=== PATIENT | female | born 2000 | race Caucasian/White ===

== ENCOUNTER 2025-04-29 10:17 | Emergency (ER) | payer MEDICAID ==
[2025-04-29 11:07] LABS: #Basophils 0.04 10x3/uL (0.0-0.2); #Eosinophils 0.48 10x3/uL (0.0-0.5); #Monocytes 0.88 10x3/uL (0.0-1.1); #Neutrophils 5.04 10x3/uL (1.5-8.4); %Basophils 0.5 % (0.0-2.0); %Eosinophils 5.8 % (0.0-6.0); %Lymphocytes 21.3 % (18.0-47.0); %Monocytes 10.7 % (0.0-10.0); %Neutrophils 61.3 % (40.0-75.0); Hematocrit 30.3 % (34.9-44.5); Hemoglobin 10.0 g/dL (12.0-15.5); Mean Corpuscular Hemoglobin 28.2 pg (27.0-33.0); Mean Corpuscular Volume 85.4 fL (81.6-98.3); Platelet Count 243 10x3/uL (150-450); Red Blood Cell (RBC) Count 3.55 10x6/uL (3.90-5.03); White Blood Cell (WBC) Count 8.22 10x3/uL (3.5-10.5)
[2025-04-29 11:23] LABS: ALT (SGPT) 9 U/L (Less than 34); AST (SGOT) 24 U/L (11-34); Albumin 3.0 g/dL (3.1-4.5); Alkaline Phosphatase 149 U/L (40-110); Anion Gap 12 mmol/L (10-20); BUN (Urea Nitrogen) 7 mg/dL (7.0-18.7); Bilirubin, Total 0.2 mg/dL (0.3-1.2); Calc. Creatinine Clearance 0 mL/min (70-130); Calcium 9.5 mg/dL (7.8-10.44); Carbon Dioxide 23 mmol/L (22-29); Chloride 107 mmol/L (98-107); Globulin 3.8 g/dL (2.4-3.5); Glucose 107 mg/dL (70-105); Lipase 19 U/L (8-78); Potassium 4.0 mmol/L (3.5-5.1); Sodium 138 mmol/L (136-145)
[2025-04-29 11:27] LABS: Troponin I Less than 0.010 ng/mL (< 0.028)
[2025-04-29] MEDS ORDERED: Iopamidol 370 76% 100 ML VIAL ONE (12:26)
== END 2025-04-29 14:55 | disposition home or self-care (01) ==
LOC: CSHERS 10:17
DX: O99.513 Diseases of the respiratory system complicating pregnancy, third trimester (principal); J18.9 Pneumonia, unspecified organism; Z3A.37 37 weeks gestation of pregnancy; Z55.6 Problems related to health literacy
CPT/HCPCS: 36415; 71045; 71275; 80053; 83690; 84443; 84484; 85025; 85379; 93005; Q9967

== ENCOUNTER 2025-05-29 10:25 | Inpatient (IN) | payer MEDICAID ==
[2025-05-29 11:05] VITALS: BMI 30.7
[2025-05-29 12:20] LABS: Hematocrit 32.6 % (34.9-44.5); Hemoglobin 10.5 g/dL (12.0-15.5); Mean Corpuscular Hemoglobin 26.7 pg (27.0-33.0); Mean Corpuscular Volume 83.0 fL (81.6-98.3); Platelet Count 241 10x3/uL (150-450); Red Blood Cell (RBC) Count 3.93 10x6/uL (3.90-5.03); White Blood Cell (WBC) Count 7.14 10x3/uL (3.5-10.5)
[2025-05-29 12:54] LABS: HIV (1/2) Antibody/Antigen Non-Reactive (NonReactive); HIV 1/2 INDEX 0.05 S/CO (<1.00); Hep B Surf Ag - L&D Non-Reactive S/CO (NonReactive)
[2025-05-29 12:55] LABS: Syphilis Antibody Index 0.07 S/CO (<1.00 Non-Reactive)
[2025-05-29] MEDS ORDERED: Methylergonovine 0.2 MG/ML VIAL IM PRN ×2 (14:18→18:44)
[2025-05-29] MEDS ORDERED: Diphenoxylate HCl/Atropine Tablet PO PRN (14:18)
[2025-05-29] MEDS ORDERED: Bicitra 30 ML UDCUP PO PRN (14:18)
[2025-05-29] MEDS ORDERED: Ondansetron PF 4 MG/2 ML Vial IVP PRN ×3 (14:18→21:08)
[2025-05-29] MEDS ORDERED: hydrALAZINE 20 MG/ML VIAL SLOW IVP PRN ×2 (14:18→18:44)
[2025-05-29] MEDS ORDERED: Famotidine/PF 20 mg/2ml Vial SLOW IVP PRN (14:18)
[2025-05-29] MEDS ORDERED: Carboprost 250 MCG/ML AMP IM PRN (14:18)
[2025-05-29] MEDS ORDERED: Tranexamic Acid 1,000 MG/10 ML VIAL IVP PRN (14:18)
[2025-05-29] MEDS ORDERED: Oxytocin 30 units/NS 500 ML 500 ML IV SCH ×2 (14:30→18:44)
[2025-05-29 16:32] LABS: Cocaine Metabolite Screen Negative (Negative); THC/Cannabinoid Screen Negative (Negative); Tricyclic Screen Negative (Negative)
[2025-05-29] MEDS ORDERED: Lanolin Ointment 7 GM TUBE TOP PRN (18:44)
[2025-05-29] MEDS ORDERED: Boostrix 0.5 ML (Tdap) VIAL (>/=7 yrs of age) IM ONE (18:44)
[2025-05-29] MEDS ORDERED: diphenhydrAMINE 25 MG CAP PO PRN (18:44)
[2025-05-29] MEDS ORDERED: HYDROcodone/Acetaminophen 5/325 mg Tablet PO PRN ×2 (18:44)
[2025-05-29] MEDS ORDERED: Meperidine HCl/PF 25 MG (1 mL) VIAL SLOW IVP PRN (21:08)
[2025-05-29] MEDS ORDERED: Communication Order-Pharmacy FS SCH (21:15)
[2025-05-29] MEDS ORDERED: Ibuprofen 800 MG TAB PO SCH (22:00)
[2025-05-29] MEDS: Ketorolac Tromethamine 30 MG (1 mL) VIAL IVP PRN (22:06)
[2025-05-29] MEDS: Ondansetron PF 4 MG/2 ML Vial IVP PRN (22:06)
[2025-05-29] MEDS: Simethicone Chewable 80 MG TAB PO PRN (22:08)
[2025-05-29] MEDS: Oxytocin 10 UNITS/ML VIAL ONE (23:29)
[2025-05-29] MEDS: Ketorolac Tromethamine 30 MG (1 mL) VIAL ONE (23:29)
[2025-05-29] MEDS: Ondansetron PF 4 MG/2 ML Vial ONE (23:29)
[2025-05-29] MEDS: PHENYLEPHRINE-NS 100 MCG/ML 10 ML SYRINGE ONE (23:29)
[2025-05-29] MEDS: Ferrous Sulfate 325 MG TAB PO SCH (23:30)
[2025-05-29] MEDS: diphenhydrAMINE 50 MG/ML VIAL IVP PRN (23:46)
[2025-05-30 05:19] LABS: Hematocrit 25.9 % (34.9-44.5); Hemoglobin 8.4 g/dL (12.0-15.5); Mean Corpuscular Hemoglobin 26.8 pg (27.0-33.0); Mean Corpuscular Volume 82.5 fL (81.6-98.3); Platelet Count 190 10x3/uL (150-450); Red Blood Cell (RBC) Count 3.14 10x6/uL (3.90-5.03); White Blood Cell (WBC) Count 10.59 10x3/uL (3.5-10.5)
[2025-05-30] MEDS: HYDROcodone/Acetaminophen 5/325 mg Tablet PO PRN (09:37)
[2025-05-30] MEDS: Ibuprofen 800 MG TAB PO SCH (15:05)
[2025-05-31] MEDS ORDERED: Ibuprofen 800 MG TAB PO SCH (03:00)
[2025-05-31] MEDS ORDERED: Measles/Mumps/Rubella 10 MCG/0.5 ML VIAL SC ONE (06:16)
[2025-05-31] MEDS: HYDROcodone/Acetaminophen 5/325 mg Tablet PO PRN (08:13)
[2025-05-31 11:38] VITALS: BP 118/70; TEMP 98.3
== END 2025-05-31 14:45 | disposition home or self-care (01) | DRG 788 ==
LOC: CSHLD/OP 10:25 → CSHLD 14:21 → CSHPP 18:23
PROVIDERS: ADMIT Student in an Organized Health Care Education/Training Program; ATTEND Student in an Organized Health Care Education/Training Program
PROC: 10D00Z1 Extraction of Products of Conception, Low, Open Approach (ICD-10-PCS; principal; 2025-05-29)
DX: O48.0 Post-term pregnancy (principal); O34.211 Maternal care for low transverse scar from previous cesarean delivery; Z3A.40 40 weeks gestation of pregnancy; Z37.0 Single live birth; N85.8 Other specified noninflammatory disorders of uterus
CPT/HCPCS: 36415; 51702; 76815; 76819; 80306; 85027; 86762; 86780; 86850; 86900; 86901; 87340; 87389; 99285; J1200; J1885; J2274; J2310; J2405; J2590